=== PATIENT | male | born 1970 | race Caucasian/White ===

== ENCOUNTER 2024-06-12 14:14 | Observation (INO) | payer OTHER, SELFPAY ==
[2024-06-12] VITALS (16 sets, daily range): BP systolic 128–153; BP diastolic 66–91; PULSE 58–127; RESP 14–28; TEMP 36.1–37.1; O2SAT 92–99; BMI 36.4; BMI 35.4
--- NOTE | 2024-06-12 14:28 | EKG12_ITS ---
Test Reason : CP Blood Pressure : */* mmHG Vent. Rate : 67 BPM Atrial Rate : 67 BPM P-R Int : 150 ms QRS Dur : 88 ms QT Int : 410 ms P-R-T Axes : 4 0 13 degrees QTcB Int : 433 ms Normal sinus rhythm Minimal voltage criteria for LVH, may be normal variant ( R in aVL ) Borderline ECG Confirmed by DOUG ALEXIS, VASYL ([id number]), proposal editor ODILIA CRAWFORD ([id number]) on 06/13/2024 1:26:26 PM Referred By: DALY Confirmed By: VASYL CAMACHO MD
--- NOTE | 2024-06-12 14:43 | EX.ED.DYSGE1 ---
HPI History of Present Illness Chief Complaint: Chest Pain Narrative Narrative: Patient is a 54-year-old male with no known significant past medical history does not follow with a physician on a regular basis who presents to the emergency department with a chief complaint of lightheadedness, dizziness, confusion and not feeling well. 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 He states that he laid there for several hours and notes that things were not getting better therefore he called for an ambulance. Patient's significant other bedside notes that he had no idea where he was and they had to use GPS tracking to track his phone to be able to pick him up. She states that they went to [facility] where they did a workup and was ultimately sent home and was diagnosed with bronchitis. Patient states that he [place] truck all [place] the [place] and denies any history of blood clots. Patient states that he still feels unwell overall. He states that he feels like someone is sitting on his chest currently. Patient significant other notes that when they try to get him in here when he stood up he almost passed out. [facility] Medical History (Updated 06/12/24 @ 20:[address] Eric Rizo, ) Obesity GERD (gastroesophageal reflux disease) Home Medications ?Medication ?Instructions ?Recorded ?Last Taken ?Type chlorpheniramine-pseudoephedrine 2 10 ml PO Q6H PRN cold symptoms 06/12/24 06/11/24 History mg-30 mg/5 mL oral liquid (LoHist - D) omeprazole 20 mg tablet,delayed 20 mg PO DAILY PRN reflux 06/12/24 06/12/24 History release Allergy/AdvReac Type Severity Reaction Status Date / Time No Known Allergies Allergy Verified 06/12/24 14:14 Social History Smoking Status: Never smoker ROS ROS ED ROS Narrative Constitutional: Complains of lightheadedness and dizziness as noted above denies headache, fevers or chills Eyes: Denies change in vision double vision blurry vision Cardiovascular: Complains of chest pain as noted above denies palpitations Respiratory: Complains of shortness of breath Abdomen: Denies abdominal pain nausea vomit diarrhea : Denies urinary symptoms Neurological: Denies numbness, weakness, tingling Musculoskeletal: Denies back pain Skin: Denies rashes or lesions EXAM Physical Exam Narrative Exam Narrative: General: Patient lying in bed appeared to be not feeling well overall Head: Atraumatic, normocephalic Eyes: PERRL bilaterally, EOMI bilaterally, no conjunctival injection noted Neck: Soft, supple, trachea midline Cardiovascular: Regular rate and rhythm Respiratory: Clear to auscultation bilaterally Abdomen: Soft, nondistended, nontender to palpation Extremities: Radial pulses +2/4 in the bilateral extremities, no pedal edema on exam, +4/5 strength noted in the bilateral upper and lower extremities Neurological: Patient following commands knew that since he was at the hospital year is 2024. Told me that I had a watch on the left wrist the TV is on the wall. NIH of 0 GCS 15. Patient completed finger-nose testing bilaterally for any difficulty Skin: Warm, dry, intact no rashes or lesions noted Const Vital Signs: 06/12/24 14:15 06/12/24 15:00 06/12/24 15:29 Temperature 97 F L Temperature Source Temporal Pulse Rate 65 58 L Respiratory Rate 28 H 20 H Blood Pressure 142/80 H 153/83 H Blood Pressure Mean 100 104 Pulse Ox 99 99 Oxygen Delivery Method Room Air Room Air 06/12/24 16:00 06/12/24 16:23 06/12/24 17:00 Temperature 98 F Temperature Source Oral Pulse Rate 60 67 Respiratory Rate 24 H 15 Blood Pressure 148/86 H 142/87 H Blood Pressure Mean 106 103 Pulse Ox 97 96 Oxygen Delivery Method 06/12/24 18:00 06/12/24 19:00 06/12/24 19:15 Temperature Temperature Source Pulse Rate 67 67 69 Respiratory Rate 25 H 27 H 14 Blood Pressure 146/84 H 147/70 H 134/80 H Blood Pressure Mean 103 93 95 Pulse Ox 92 94 97 Oxygen Delivery Method 06/12/24 19:22 06/12/24 19:30 06/12/24 19:31 Temperature 98.8 F Temperature Source Oral Pulse Rate 67 127 H 102 H Respiratory Rate 23 H 24 H Blood Pressure 134/80 H 133/86 H Blood Pressure Mean 101 Pulse Ox 93 95 Oxygen Delivery Method Room Air 06/12/24 19:31 06/12/24 19:45 06/12/24 20:00 Temperature Temperature Source Pulse Rate 117 H 94 74 Respiratory Rate 23 H 21 H 26 H Blood Pressure 133/86 H 128/91 H Blood Pressure Mean 99 102 Pulse Ox 94 95 97 Oxygen Delivery Method Room Air Room Air MDM MDM MDM Narrative Medical decision making narrative: Patient is a 54-year-old male who presents to the emerged part with chief complaint chest pain, shortness of breath, dizziness and not feeling well as well as confusion. On the differential diagnosis includes but not limited to intracranial hemorrhage, CVA, large vessel occlusion, ACS, pneumonia, pneumothorax, pulmonary malaise, dissection. Once workup is obtained reviewed he will be reevaluated. Patient's CBC was reviewed and showed a white blood count of 14,000, hemoglobin 16.7, platelet count noted to be normal at 284. Patient sodium normal 137, potassium 3.7, creatinine normal at 0.97. Patient AST and ALT are 21 and 26 respectively, troponin was normal at 7 with a delta troponin obtained normal at 7 as well. Patient's EKG was reviewed and showed sinus rhythm with a rate of 61 bpm. Patient's drug screen was negative outside of presumptive positive for opiates he was given morphine here in the emergency department. Patient's CT without contrast showed no acute intracranial hemorrhage or herniation. Minimal scattered supratentorial white matter hypodensities. Patient CTA head and neck reviewed which showed unremarkable Noncon CT head without evidence of acute hemorrhage or herniation no large vessel occlusion aneurysm or AVM noted. Prominent bilateral cervical chain nodes likely reactive recommending follow-up CT in 4 weeks. Patient's CTA chest abdomen pelvis was reviewed and showed no acute findings chest abdomen pelvis no acute aortic pathology cholelithiasis noted. Patient tested negative for COVID flu RSV. Patient called out and states that his chest pain returned and feels like somebody is stepping on his chest still therefore he was given nitro and a repeat EKG was performed which showed sinus rhythm with a rate of 61 bpm no acute changes noted. At this point time will reach out to the hospitalist for admission given his confusion/altered mental status still to this point, dizziness and not feeling his normal self. He was recently at an outside facility for similar symptoms and return here today as they worsened again. Discussed case with hospitalist Dr. Packer who is recommending discussion with on-call hat binder Dr. Hernandez. She will accept patient for admission. Patient was given 325 mg aspirin and nitroglycerin. Did discuss case with on-call hat binder Dr. Hernandez who states that he will see the patient. Lab Data Labs: Laboratory Results - last 24 hr 06/12/24 06/12/24 06/12/24 14:32 16:30 17:15 WBC 14.1 H RBC 5.07 Hgb 16.7 H Hct 44.8 MCV 88.4 MCH 32.9 H MCHC 37.3 H RDW Std Deviation 42.1 RDW Coeff of Poli 13.0 Plt Count 284 MPV 9.5 Immature Gran % (Auto) 0.400 Neut % (Auto) 78.7 H Lymph % (Auto) 12.9 L Edmunds % (Auto) 7.8 Eos % (Auto) 0.1 Baso % (Auto) 0.1 Absolute Neuts (auto) 11.1 H Absolute Lymphs (auto) 1.82 Nucleated RBC % 0 Sodium 137 Potassium 3.7 Chloride 100 Carbon Dioxide 22.1 Anion Gap 14 BUN 11 Creatinine 0.97 Est GFR (MDRD) Non-Af 94 BUN/Creatinine Ratio 11.3 Glucose 151 H Calcium 9.9 Total Bilirubin 0.81 Direct Bilirubin 0.33 H AST 21 ALT 26 Alkaline Phosphatase 103 Troponin T High Sens 7 Troponin T Hi Sens 2 Hr 7 Troponin T Hi Sens 4Hr NT pro BNP II 107 Total Protein 8.1 Albumin 4.4 Globulin 3.6 Urine Opiates Screen PRESUMPTIVE POSITIVE U Buprenorphine Qual NEGATIVE Ur Oxycodone Screen NEGATIVE Urine Methadone Screen NEGATIVE Urine Fentanyl Screen NEGATIVE Ur Barbiturates Screen NEGATIVE Ur Phencyclidine Scrn NEGATIVE Ur Amphetamines Screen NEGATIVE U Benzodiazepines Scrn NEGATIVE Urine Cocaine Screen NEGATIVE U Cannabinoids Screen NEGATIVE 06/12/24 19:34 WBC RBC Hgb Hct MCV MCH MCHC RDW Std Deviation RDW Coeff of Poli Plt Count MPV Immature Gran % (Auto) Neut % (Auto) Lymph % (Auto) Edmunds % (Auto) Eos % (Auto) Baso % (Auto) Absolute Neuts (auto) Absolute Lymphs (auto) Nucleated RBC % Sodium Potassium Chloride Carbon Dioxide Anion Gap BUN Creatinine Est GFR (MDRD) Non-Af BUN/Creatinine Ratio Glucose Calcium Total Bilirubin Direct Bilirubin AST ALT Alkaline Phosphatase Troponin T High Sens Troponin T Hi Sens 2 Hr Troponin T Hi Sens 4Hr 8 NT pro BNP II Total Protein Albumin Globulin Urine Opiates Screen U Buprenorphine Qual Ur Oxycodone Screen Urine Methadone Screen Urine Fentanyl Screen Ur Barbiturates Screen Ur Phencyclidine Scrn Ur Amphetamines Screen U Benzodiazepines Scrn Urine Cocaine Screen U Cannabinoids Screen Radiography Diagnostic Testing: Clinical Impression(s) from Imaging Studies Chest/Abdomen/Pelvis CTA 06/12/24 15:10 IMPRESSION: 1. No acute findings in the chest, abdomen and pelvis. 2. No acute aortic pathology. 3. Cholelithiasis. Reading [facility] Head/Neck CTA 06/12/24 15:10 IMPRESSION: 1. Unremarkable noncontrast CT head without evidence of acute hemorrhage or herniation. 2. No large vessel occlusion, aneurysm or AVM. 3. Prominent bilateral cervical chain nodes, [id number], likely reactive. However consider follow-up CT neck in 4 weeks to ensure resolution. Reading Location: [id number] Discharge Plan Triage Chief Complaint: Chest Pain ED Provider: Eric Rizo Dx/Rx/DC Orders Clinical Impression: Chest pain, Light-headedness, Near syncope, Dizziness Prescriptions: No Action omeprazole 20 mg tablet,delayed release (DR/EC) 20 mg PO DAILY PRN (Reason: reflux) LoHist - D 2-30 mg/5 mL liquid 10 ml PO Q6H PRN (Reason: cold symptoms) Primary Care Provider: Care Physician,No Primary Referrals: [facility] Doctor,Out of [Non-Staff] - Print Language: [place] Disposition Disposition: Acute Care [facility]
[2024-06-12] MEDS: 0.9% Normal Saline (1000mL) 1,000 ML 999 ML IV (14:45)
[2024-06-12 14:50] LABS: Absolute Lymphocyte Count 1.82 X10^3/uL (0.83-4.51); Absolute Neutrophil Count 11.1 X10^3/uL (2.0-7.7); Basophil# 0.02 X10^3/uL; Basophil% 0.1 % (0-1); Eosinophil# 0.02 X10^3/uL; Eosinophils% 0.1 % (0-5); Hematocrit 44.8 % (40-54); Hemoglobin 16.7 g/dL (13.0-16.5); Lymphocyte # 1.82 X10^3/ul (0.83-4.51); Lymphocyte % 12.9 % (19-41); Mean Corp Hgb Conc 37.3 g/dL (32-36); Mean Corpuscular Hgb 32.9 pg (27.0-32.0); Mean Corpuscular Volume 88.4 fL (80-94); Mean Platelet Vol. 9.5 fl (6.2-12.0); Monocyte% 7.8 % (0-10); NRBC Flagged by Analyzer 0 % (0-5); Neutrophil # 11.08 X10^3/uL (2.7-7.7); Neutrophil % 78.7 % (47-70); Platelet Count 284 K/mm3 (150-450); RBC Distribution Width SD 42.1 fl (35.1-43.9); Red Blood Count 5.07 M/mm3 (4.6-6.2); White Blood Count 14.1 K/mm3 (4.4-11.0)
--- NOTE | 2024-06-12 15:10 | CT_ITS ---
PROCEDURE: CTA CHST, ABD, PEL W AND/OR WO 06/12/2024 REASON FOR EXAM: DIZZY, TECHNIQUE: Chest abdomen and pelvis CT with intravenous contrast. Coronal and Sagittal reconstruction series were provided. One or more dose reduction techniques were used (e.g., Automated exposure control, adjustment of the mA and/or kV according to patient size, use of iterative reconstruction technique. PATIENT PREPARATION: Per protocol ORAL CONTRAST TYPE: None. AMOUNT: mL CONTRAST: Omnipaque 350 VOLUME: 100 mL Gauge IV COMPARISON: None FINDINGS: CHEST: Lines and tubes: None Mediastinum: No suspicious adenopathy. Thyroid gland is unremarkable. Pulmonary arteries are within normal limits. No evidence of pulmonary embolism. Heart: No cardiomegaly. No coronary artery calcifications. Thoracic Aorta: No thoracic aortic aneurysm or dissection. Lungs and Airways: Central airways are patent without endobronchial lesions. No focal consolidation. No suspicious pulmonary nodules. Patchy opacities in the lung base, compatible with atelectasis. No pneumothorax. Bones: Degenerative changes of the spine. Other: ABDOMEN AND PELVIS: Liver: Normal size. No mass. Gallbladder: No ductal dilation. Large gallstone at the gallbladder neck. No significant wall thickening. Spleen: Normal size. Pancreas: Normal size without evidence of mass surrounding inflammation or ductal dilation. Adrenals: Unremarkable. Kidneys: Normal renal sizes. No hydronephrosis. 11 mm right upper pole simple cyst. Bladder: Unremarkable. Reproductive Organs: No pelvic mass. Bowel: Stomach is unremarkable. No bowel dilation or wall thickening. Colonic diverticulosis without diverticulitis. Appendix is not visualized. Vasculature: The abdominal aorta and IVC are normal. Peritoneum / Retroperitoneum: No ascites. No pneumoperitoneum. Bones: Degenerative changes of the spine. CT/CTA Chst, Abd, Pel W and/or WO IMPRESSION: 1. No acute findings in the chest, abdomen and pelvis. 2. No acute aortic pathology. 3. Cholelithiasis. Reading Location: [id number]
--- NOTE | 2024-06-12 15:10 | CT_ITS ---
PROCEDURE: STROKE CTA HEAD AND NECK W/CON 06/12/2024 REASON FOR EXAM: Dizziness, shortness of breath and diaphoresis. TECHNIQUE: CTA imaging of the head and neck from the aortic arch to the skull vertex with out contrast and with intravenous contrast. Multiplanar and multisequence images were obtained. CONTRAST: Isovue 370 VOLUME: 100 mL One or more dose reduction techniques were used (e.g., Automated exposure control, adjustment of the mA and/or kV according to patient size, use of iterative reconstruction technique). RADIATION DOSE SUMMARY: CTDlvol: 65 mGy DLP: 1800 mGycm COMPARISON: None. FINDINGS: Noncontrast CT head: No acute intracranial hemorrhage or herniation. Minimal scattered supratentorial white matter hypodensities. The bazan-white matter interfaces are otherwise maintained. The mastoid air cells and visualized paranasal sinuses are well-aerated. Unremarkable orbits. No acute calvarial fracture or scalp hematoma. CTA: Three-vessel aortic arch without stenosis or occlusion. The bilateral vertebral arteries are widely patent. The bilateral cervical carotid arteries are widely patent without focal stenosis or narrowing by NASCET criteria. The bilateral carotid siphons are widely patent. The bilateral anterior, middle and posterior cerebral arteries are widely patent without stenosis. No aneurysm or AVM. Major venous structures: Unremarkable. Other findings: Cervical spondylosis. Prominent bilateral cervical chain nodes, [id number]-left. Normal thyroid. Prior dental restorations. CT/STROKE CTA Head AND Neck W/Con IMPRESSION: 1. Unremarkable noncontrast CT head without evidence of acute hemorrhage or her niation. 2. No large vessel occlusion, aneurysm or AVM. 3. Prominent bilateral cervical chain nodes, [id number]-left, likely re active. However consider follow-up CT neck in 4 weeks to ensure resolution. Reading Location: [id number]
[2024-06-12 15:56] LABS: AST(SGOT) 21 U/L (<=37); Alanine Aminotransfer ALT/SGPT 26 U/L (<=46); Albumin, Serum 4.4 g/dL (3.5-5.0); Alkaline Phosphatase 103 U/L (40-129); Anion Gap 14 (5-15); BUN 11 mg/dL (4-19); BUN/Creat Ratio 11.3 RATIO (10-20); Bilirubin, Direct 0.33 mg/dL (0.00-0.30); Calcium,Total 9.9 mg/dL (7.6-11.0); Carbon Dioxide 22.1 mmol/L (21.0-32.0); Chloride 100 mmol/L (98-108); Creatinine, Serum 0.97 mg/dL (0.70-1.20); EST Glomerular Filtration Rate 94 (>60); Globulin 3.6 g/dL (2.2-4.2); Glucose 151 mg/dL (70-99); Potassium 3.7 mmol/L (3.3-5.1); Pro- Brain NATRIURETIC PEPTIDE 107 pg/mL (<=900); Protein, Total 8.1 g/dL (5.9-8.4); Sodium Level 137 mmol/L (133-145); Total Bilirubin 0.81 mg/dL (0.00-1.30); Troponin T High Sensitivity 7 ng/L (<=22)
[2024-06-12] MEDS: Morphine 4 MG/ML Syringe IV (16:18)
[2024-06-12] MEDS: Ondansetron 4 MG/2 ML Vial IV (16:18)
[2024-06-12 17:16] LABS: Troponin T High Sens 2 HR 7 ng/L (<=22)
[2024-06-12 18:02] LABS: Amphetamine Urine NEGATIVE (<1000 ng/mL); Barbiturate Urine NEGATIVE (< 200 ng/mL); Benzodiazepine Urine NEGATIVE (< 200 ng/mL); Buprenorphine Urine NEGATIVE (< 200 ng/mL); Cocaine Urine NEGATIVE (< 300 ng/mL); Fentanyl, Urine NEGATIVE; Methadone Urine NEGATIVE (< 300 ng/mL); Opiates Urine PRESUMPTIVE POSITIVE (< 300 ng/mL); Oxycodone, Urine NEGATIVE (< 100 ng/mL); PCP Urine NEGATIVE (< 25 ng/mL); THC Urine NEGATIVE (< 50 ng/mL)
--- NOTE | 2024-06-12 19:18 | PCA ---
NO OLD EKG
[2024-06-12] MEDS: Nitroglycerin SL (ED/IMG/CATH) 0.4 MG TABLET SL (19:22)
[2024-06-12 20:05] LABS: Troponin T High Sens 4 HR 8 ng/L (<=22)
--- NOTE | 2024-06-12 20:05 | PCM.HP.STD ---
HPI - General General Date of Admission: 06/12/24 Date of Service: 06/12/24 Chief Complaint: Chest pain, lightheadedness, dizziness, near syncopal sensation. HPI Narrative The patient is a 54 y/o M w/ PMHx: Possible PreDM history remotely, GERD, Obesity, (Denies any abuse history, possibly from morphine in the ED depending on timing of morphine dose and urine sample) UDS noted opiate presumed positive status not on narcotic chronic regimen who presents to the [facility] ED on 06/12/2024 with history of onset lightheadedness, dizziness, midsternal nonradiating chest discomfort described as a pressure-like sensation with no radiation rated 8 out of 10 in severity with associated dyspnea, diaphoresis, nausea and emesis starting the day previous while 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 He does report that recently over the last week he has had increased nasal congestion and that there has been a significant amount of pollen. He denies any specific fevers but is significant states that he has been diaphoretic and once this seems to raciel he reports potential chills. He denies any abdominal pain or diarrhea. He notes that he has no ill contacts including his significant children at the house all of which have been healthy. He does report a similar episode 1 month prior but at that time he also had other viral syndrome type complaints including sore joints and a notable cough which seem to improve however he did have the chest discomfort transiently at that time as well which seemed to raciel. He notes that his chest pressure has been constant since it started the day prior. He does report sensation of being confused when his discomfort is severe however in the ED he is completely oriented and appropriate. In the ED despite patient reported intermittent episodes of confusion his NIH stroke assessment is 0 and he reported all orientation items correctly. Workup in the ED included T97 temporal, heart rate 65, BP 142/80, respiratory rate 28, 99% on room air with most recent repeat vitals T98.8 Oral, heart rate 102, BP 133/86, respiratory rate 24, 95% on room air, CBC with WC 14.1, he 1 16.7, platelet 284 with left shift, CMP with glucose 151, T. bili 0.33 otherwise hepatic profile unremarkable, NT proBNP to normal at 107, initial troponin 7 with repeat delta 7-1/4-hour troponin pending upon requested evaluation of patient, UDS with positive presumed opiate screen, CTA chest/abdomen/pelvis with no acute findings, cholelithiasis noted, CTA head and neck with no acute findings with prominent bilateral cervical chain nodes right greater than left possibly reactive, EKG sinus rhythm with no acute evidence of ischemia with repeat also performed in similar. 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 [facility] Medical History (Updated 06/12/24 @ 20:[address] Irma Packer MD) Prediabetes Obesity GERD (gastroesophageal reflux disease) Home Medications ?Medication ?Instructions ?Recorded ?Last Taken ?Type chlorpheniramine-pseudoephedrine 2 10 ml PO Q6H PRN cold symptoms 06/12/24 06/11/24 History mg-30 mg/5 mL oral liquid (LoHist - D) omeprazole 20 mg tablet,delayed 20 mg PO DAILY PRN reflux 06/12/24 06/12/24 History release Allergy/AdvReac Type Severity Reaction Status Date / Time No Known Allergies Allergy Verified 06/12/24 14:14 Family History (Updated 06/12/24 @ 20:[address] Irma Packer MD) Mother Alzheimer's dementia Father CAD (coronary artery disease) First UT/PCI intervention in his early 60s, did end up having also bypass surgery. Myocardial infarction Hypertension Heart disease Surgical History (Updated 06/12/24 @ 20:[address] Irma Packer MD) History of tonsillectomy and adenoidectomy Social History (Updated 06/12/24 @ 20:[address] Irma Packer MD) household members: significant other Smoking Status: Never smoker alcohol intake: never substance use type: does not use ROS ROS Narrative Admission Review of Systems: CONSTITUTIONAL: No weight loss, fever, + chills, weakness or fatigue. HEENT: + Nasal congestion. Eyes: No visual loss, blurred vision, double vision or yellow sclerae. Ears, Nose, Throat: No hearing loss, sneezing, congestion, runny nose or sore throat. SKIN: No rash or itching, lesions, wounds. CARDIOVASCULAR: + Chest pain/pressure, near syncopal sensation, LH/dizziness. No edema, orthopnea, syncopal events. RESPIRATORY: + Dyspnea, cough only after recent emesis bout otherwise no marked recent productive cough. No wheezing, hemoptysis. GASTROINTESTINAL: + anorexia, nausea, vomiting. No diarrhea, abdominal pain, melena, BRBPR. GENITOURINARY: No dysuria, frequency, urgency or retention. NEUROLOGICAL: + LH/Dizziness, near syncopal sensation. No headache, dizziness, syncope, paralysis, ataxia, numbness or tingling in the extremities, focal weakness, change in bowel or bladder control, seizure. MUSCULOSKELETAL: + muscle, back pain, joint pain or stiffness. HEMATOLOGIC: No anemia, bleeding or bruising. LYMPHATICS: No enlarged nodes. No history of splenectomy. PSYCHIATRIC: No history of depression or anxiety. ENDOCRINOLOGIC: + reports of sweating, cold or heat intolerance. No polyuria or polydipsia. ALLERGIES: + Allergic rhinitis. Vital Signs Vital Signs Vital Signs: 06/12/24 14:15 06/12/24 15:00 06/12/24 15:29 Temperature 97 F L Temperature Source Temporal Pulse Rate 65 58 L Respiratory Rate 28 H 20 H Blood Pressure 142/80 H 153/83 H Blood Pressure Mean 100 104 Pulse Ox 99 99 Oxygen Delivery Method Room Air Room Air 06/12/24 16:00 06/12/24 16:23 06/12/24 17:00 Temperature 98 F Temperature Source Oral Pulse Rate 60 67 Respiratory Rate 24 H 15 Blood Pressure 148/86 H 142/87 H Blood Pressure Mean 106 103 Pulse Ox 97 96 Oxygen Delivery Method 06/12/24 18:00 06/12/24 19:00 06/12/24 19:15 Temperature Temperature Source Pulse Rate 67 67 69 Respiratory Rate 25 H 27 H 14 Blood Pressure 146/84 H 147/70 H 134/80 H Blood Pressure Mean 103 93 95 Pulse Ox 92 94 97 Oxygen Delivery Method 06/12/24 19:22 06/12/24 19:30 06/12/24 19:31 Temperature 98.8 F Temperature Source Oral Pulse Rate 67 127 H 102 H Respiratory Rate 23 H 24 H Blood Pressure 134/80 H 133/86 H Blood Pressure Mean 101 Pulse Ox 93 95 Oxygen Delivery Method Room Air 06/12/24 19:31 06/12/24 19:45 04/30/25 20:00 Temperature Temperature Source Pulse Rate 117 H 94 74 Respiratory Rate 23 H 21 H 26 H Blood Pressure 133/86 H 128/91 H Blood Pressure Mean 99 102 Pulse Ox 94 95 97 Oxygen Delivery Method Room Air Room Air Weight Weight: 283 lb 11.2 oz Body Mass Index (BMI) 36.4 Physical Exam Narrative Physical Examination: General: Awake, alert, oriented x 3 including to self, place, recent events, remains cooperative, seated upright in the ED bed in no apparent distress, chest pressure currently 8/10 but comfortable appearing. Skin: Normal color, normal turgor, no icterus, no cyanosis. HEENT: AT/NC, EOMI, PERRLA, mildly dry MM, evident nasal congestion, no carotid bruits or JVD noted; however, thickened neck makes evaluation difficult. Lungs: Mildly diminished, > bases, appropriate effort, no rales, ronchi or wheezing. Heart: Regular rate and rhythm; no gallop, rub audible. Abdomen: Soft, obese, NTTP, ND, mildly hyperactive BS, no appreciated HSM. Extremities: No cyanosis, clubbing, or edema. Neurological: Patient awake, alert, oriented as noted, cognitive function currently appears baseline intact; pupils equally reactive to light and accommodation, cranial nerves grossly normal, moving all 4 extremities, no focal deficits, strength mildly to moderately globally decreased secondary to acute presentation but currently improved as most symptoms currently abated. Psychiatric: Affect appears fatigued otherwise normal, no acute evidence of depressive or anxiety feelings. Results Lab / Micro Data 06/12/24 14:32 06/12/24 14:32 Labs: Laboratory Results - last 24 hr 06/12/24 14:32: WBC 14.1 H, RBC 5.07, Hgb 16.7 H, Hct 44.8, MCV 88.4, MCH 32.9 H, MCHC 37.3 H, RDW Std Deviation 42.1, RDW Coeff of Poli 13.0, Plt Count 284, MPV 9.5, Immature Gran % (Auto) 0.400, Neut % (Auto) 78.7 H, Lymph % (Auto) 12.9 L, [place] % (Auto) 7.8, Eos % (Auto) 0.1, Baso % (Auto) 0.1, Absolute Neuts (auto) 11.1 H, Absolute Lymphs (auto) 1.82, Nucleated RBC % 0, Sodium 137, Potassium 3.7, Chloride 100, Carbon Dioxide 22.1, Anion Gap 14, BUN 11, Creatinine 0.97, Est GFR (MDRD) Non-Af 94, BUN/Creatinine Ratio 11.3, Glucose 151 H, Calcium 9.9, Total Bilirubin 0.81, Direct Bilirubin 0.33 H, AST 21, ALT 26, Alkaline Phosphatase 103, Troponin T High Sens 7, NT pro BNP II 107, Total Protein 8.1, Albumin 4.4, Globulin 3.6 06/12/24 16:30: Troponin T Hi Sens 2 Hr 7 06/12/24 17:15: Urine Opiates Screen PRESUMPTIVE POSITIVE, U Buprenorphine Qual NEGATIVE, Ur Oxycodone Screen NEGATIVE, Urine Methadone Screen NEGATIVE, Urine Fentanyl Screen NEGATIVE, Ur Barbiturates Screen NEGATIVE, Ur Phencyclidine Scrn NEGATIVE, Ur Amphetamines Screen NEGATIVE, U Benzodiazepines Scrn NEGATIVE, Urine Cocaine Screen NEGATIVE, U Cannabinoids Screen NEGATIVE 06/12/24 19:34: Troponin T Hi Sens 4Hr 8 Micro: Microbiology 06/12/24 14:55 Mucosa - Nose SARS-CoV-2, Influenza & RSV (PCR) - Final Imaging Radiology Impression Chest/Abdomen/Pelvis CTA 06/12/24 15:10 IMPRESSION: 1. No acute findings in the chest, abdomen and pelvis. 2. No acute aortic pathology. 3. Cholelithiasis. Reading Location: [facility] Head/Neck CTA 06/12/24 15:10 IMPRESSION: 1. Unremarkable noncontrast CT head without evidence of acute hemorrhage or herniation. 2. No large vessel occlusion, aneurysm or AVM. 3. Prominent bilateral cervical chain nodes, [id number], likely reactive. However consider follow-up CT neck in 4 weeks to ensure resolution. Reading Location: [facility] Assessment & Plan Assessment/Plan (1) Chest pain: PLAN: Plan The patient is a 54 y/o M w/ PMHx: Possible PreDM history remotely, GERD, Obesity, (Denies any abuse history, possibly from morphine in the ED depending on timing of morphine dose and urine sample) UDS noted opiate presumed positive status not on narcotic chronic regimen who presents to the [facility] ED on 06/12/2024 with history of onset lightheadedness, dizziness, midsternal nonradiating chest discomfort described as a pressure-like sensation with no radiation rated 8 out of 10 in severity with associated dyspnea, diaphoresis, nausea and emesis starting the day previous while 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 #1. Fatigue, malaise, near-syncope with lightheadedness/dizziness, chest pressure, diaphoresis with nausea/emesis, possible anginal equivalent: Unclear exact etiology but concerning history, troponin series thus far in the ED has been unremarkable, EKG x 2 in ED w/ sinus rhythm without evidence of acute ischemia, UDS with positive presumed opiate screen but denies abuse and likely from timing of urine with morphine dosing in the ED, CTA chest/abdomen/pelvis with no acute findings, cholelithiasis noted, CTA head and neck with no acute findings with prominent bilateral cervical chain nodes right greater than left possibly reactive. Will admit to PCU, place on a monitored bed to assure no acute myocardial infarction with serial cardiac enzymes. PRN EKG for chest pain/changes. Will obtain admission orthostatic and AM orthostatic VS if notable. Will maintain on judicious IVFs. Will obtain ECHO. 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 #2. Incidentally noted right greater than left prominent bilateral cervical chain nodes: Likely reactive, per radiology recommend follow-up CT neck in 4 weeks which will need to be performed outpatient per PCP discretion. #3. Hyperglycemia with possible PreDM status (notes years prior may have been diagnosed): Admission glucose elevated at 151, hemoglobin A1c requested, in the interim maintain on ADA diet with Accu-Cheks with insulin sliding scale. #4. Concern for allergic rhinitis, possible sinusitis: Will start on flonase, encourage nasal irrigation, will hold on abx start given no marked facial pain but does have mild leukocytosis, procalcitonin pending, may add abx therapy if worsens, pending full respiratory viral panel. #5. Obesity: Weight loss and lifestyle changes encouraged. #6. GERD: Will continue patient on PPI. #7. DVT prophylaxis: Low risk for observation, if transitions to inpatient status will start lovenox. Charges/Coding Visit Charges Inpatient E&M: 64998 Init Hosp L2
--- NOTE | 2024-06-12 20:09 | EKG12_ITS ---
Test Reason : CP Blood Pressure : */* mmHG Vent. Rate : 61 BPM Atrial Rate : 61 BPM P-R Int : 148 ms QRS Dur : 86 ms QT Int : 434 ms P-R-T Axes : 7 0 16 degrees QTcB Int : 436 ms Normal sinus rhythm Minimal voltage criteria for LVH, may be normal variant ( R in aVL ) Borderline ECG Confirmed by DOUG ALEXIS, VASYL ([id number]), photography editor ODILIA CRAWFORD ([id number]) on 06/13/2024 1:26:34 PM Referred By: Confirmed By: VASYL CAMACHO MD
[2024-06-12] MEDS: Aspirin 325 MG Tablet PO (20:20)
--- NOTE | 2024-06-12 21:01 | ECHOCS_ITS ---
Reason For Study : Near syncope Procedure This was a 2D Doppler, Color Flow transthoracic echocardiogram. The study was technically difficult. Exam performed portable in patient room. Left Ventricle Normal LV size. The left ventricular ejection fraction is 65 %. Stage 1 diastolic dysfunction. No regional wall motion abnormalities noted. Right Ventricle Normal RV size. Normal systolic function. Atria Normal left atrium. Normal right atrium. Mitral Valve Normal mitral valve. Tricuspid Valve Normal tricuspid valve. Mild to moderate (1-2+) tricuspid valve insufficiency. Pulmonary artery systolic pressure is 40 mmHg. Aortic Valve Trisinus/trileaflet aortic valve. Pulmonic Valve Normal pulmonic valve. Great Vessels Normal aortic root. The pulmonary artery is normal size. Normal inferior vena cava. Pericardium/Pleural No pericardial effusion. Medication Diluted definity 2.0ml given slow IV push to enhance endocardial definition. MMode/2D Measurements & Calculations LVIDd: 4.8 cm IVSd: 1.1 cm Ao root diam: 3.5 cm LVIDs: 2.4 cm LVPWd: 1.1 cm FS: 50.5 % LAV(MOD-bp): 38.3 ml LVAd ap4: 28.5 cm2 LVAd ap2: 30.7 cm2 LAV(MOD-bp) Indexed: 15.4 ml/m2 LVLd ap4: 7.5 cm LVLd ap2: 8.5 cm LAV(MOD-sp2): 36.1 ml EDV(MOD-sp4): 90.8 ml EDV(MOD-sp2): 93.4 ml LAV(MOD-sp4): 40.0 ml EDV(sp4-el): 92.4 ml EDV(sp2-el): 94.0 ml LVAs ap4: 15.5 cm2 LVAs ap2: 16.9 cm2 LVLs ap4: 6.2 cm LVLs ap2: 6.8 cm ESV(MOD-sp4): 33.1 ml ESV(MOD-sp2): 37.3 ml ESV(sp4-el): 33.1 ml ESV(sp2-el): 35.8 ml EF(MOD-sp4): 63.6 % EF(MOD-sp2): 60.1 % EF(sp4-el): 64.2 % SV(MOD-sp4): 57.7 ml SV(MOD-sp2): 56.1 ml SV(sp4-el): 59.3 ml SI(MOD-sp4): 23.1 ml/m2 SI(MOD-sp2): 22.5 ml/m2 LA A4 area: 16.9 cm2 LA dimension(2D): 3.8 cm RA A4 area: 10.9 cm2 TAPSE: 2.5 cm Doppler Measurements & Calculations MV E max yash: 70.4 cm/sec Lat Peak E' Yash: 11.5 cm/sec Med Peak E' Yash: 5.2 cm/sec MV A max yash: 76.3 cm/sec E/E' lat: 6.1 E/E' med: 13.5 MV E/A: 0.92 Ao V2 max: 154.0 cm/sec LV V1 max: 121.0 cm/sec PA V2 max: 139.8 cm/sec Ao max P.5 mmHg LV V1 max P.9 mmHg TR max yash: 297.5 cm/sec TR max P.4 mmHg ECHO/Echo Complete W/ Contrast Interpretation Summary The left ventricular ejection fraction is 65 %. Stage 1 diastolic dysfunction. Normal LV size. Contrast injection was performed. Ordering Physician: Irma Packer Performed By: Virgen Swift RDCS, RVT
[2024-06-12 22:15] LABS: Procalcitonin 0.12 ng/mL (<=0.10)
[2024-06-12] MEDS: Acetaminophen 325 MG Tablet 650 MG PO (22:16)
[2024-06-12] MEDS: Pantoprazole Sodium 20 MG Tablet PO (22:22)
[2024-06-12 23:49] LABS: Bedside Glucose 145 mg/dL (74-106)
[2024-06-13] VITALS (13 sets, daily range): BP systolic 126–153; BP diastolic 66–85; PULSE 67–95; RESP 16–18; TEMP 37.1–38.6; O2SAT 94–97; BMI 35.4
[2024-06-13] MEDS: 0.9% Normal Saline (1000mL) 1,000 ML 100 ML IV (00:05)
[2024-06-13] MEDS: 0.9% Saline Lock 10 ML Syringe IV (00:05)
[2024-06-13 05:23] LABS: Absolute Lymphocyte Count 1.49 X10^3/uL (0.83-4.51); Absolute Neutrophil Count 11.4 X10^3/uL (2.0-7.7); Basophil# 0.02 X10^3/uL; Basophil% 0.1 % (0-1); Eosinophil# 0.02 X10^3/uL; Eosinophils% 0.1 % (0-5); Hematocrit 41.6 % (40-54); Lymphocyte # 1.49 X10^3/ul (0.83-4.51); Lymphocyte % 10.5 % (19-41); Mean Corp Hgb Conc 36.1 g/dL (32-36); Mean Corpuscular Hgb 32.3 pg (27.0-32.0); Mean Corpuscular Volume 89.7 fL (80-94); Mean Platelet Vol. 9.8 fl (6.2-12.0); Monocyte# 1.16 X10^3/uL; Monocyte% 8.2 % (0-10); NRBC Flagged by Analyzer 0 % (0-5); Neutrophil # 11.42 X10^3/uL (2.7-7.7); Neutrophil % 80.7 % (47-70); Platelet Count 247 K/mm3 (150-450); RBC Distribution Width CV 13.3 % (11.6-14.6); RBC Distribution Width SD 43.5 fl (35.1-43.9); Red Blood Count 4.64 M/mm3 (4.6-6.2); White Blood Count 14.2 K/mm3 (4.4-11.0)
[2024-06-13 05:43] LABS: ALB/GLOB Ratio 1.2 RATIO (0.9-2.4); AST(SGOT) 17 U/L (<=37); Alanine Aminotransfer ALT/SGPT 21 U/L (<=46); Albumin, Serum 3.9 g/dL (3.5-5.0); Alkaline Phosphatase 90 U/L (40-129); Anion Gap 10 (5-15); BUN 8 mg/dL (4-19); BUN/Creat Ratio 9.2 RATIO (10-20); Calcium,Total 9.1 mg/dL (7.6-11.0); Carbon Dioxide 23.1 mmol/L (21.0-32.0); Chloride 103 mmol/L (98-108); Creatinine, Serum 0.85 mg/dL (0.70-1.20); EST Glomerular Filtration Rate 104 (>60); Estimated Creatinine Clearance 141.36 ml/min (50-250); Globulin 3.4 g/dL (2.2-4.2); Glucose 136 mg/dL (70-99); Potassium 3.5 mmol/L (3.3-5.1); Protein, Total 7.3 g/dL (5.9-8.4); Sodium Level 136 mmol/L (133-145)
[2024-06-13] MEDS: Acetaminophen 325 MG Tablet 650 MG PO ×2 (06:30→14:11)
[2024-06-13 06:51] LABS: Bedside Glucose 129 mg/dL (74-106)
[2024-06-13 07:22] LABS: Cholesterol 130 mg/dL (<=200); High Density Lipoprotein 31 mg/dL; Low Density Lipoprotein Calc. 85 mg/dL; Triglycerides 70 mg/dL; Very Low Density Lipoprotein 14 mg/dL (5-40); cholesterol:hdl ratio screen 4.23
[2024-06-13 07:46] LABS: Hemoglobin A1c 5.5 % (<=5.6)
--- NOTE | 2024-06-13 08:29 | PCM.CONS.C ---
Assessment & Plan Assessment/Plan (1) Chest pain: PLAN: He does have some chest discomfort complaints which are nondescript. In view of his high risk profession they decided to admit him for further cardiac workup likely to include a cardiac catheterization. This has been discussed with him the risk benefits alternatives he understands and agrees to proceed. Addendum: Cardiac catheterization done demonstrated normal coronary arteries. Ejection fraction is preserved The above is likely noncoronary chest pain. Patient can be discharged for outpatient follow-up with his primary physician. 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 He went to [facility] initially he was diagnosed with bronchitis and sent home. He has still not been feeling well has a feeling of near syncope and so presented over here. 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 [facility] Medical History (Updated 06/12/24 @ 20:[address] Irma Packer MD) Prediabetes Obesity GERD (gastroesophageal reflux disease) Home Medications ?Medication ?Instructions ?Recorded ?Last Taken ?Type chlorpheniramine-pseudoephedrine 2 10 ml PO Q6H PRN cold symptoms 06/12/24 06/11/24 History mg-30 mg/5 mL oral liquid (LoHist - D) omeprazole 20 mg tablet,delayed 20 mg PO DAILY PRN reflux 06/12/24 06/12/24 History release Allergy/AdvReac Type Severity Reaction Status Date / Time No Known Allergies Allergy Verified 06/12/24 14:14 Family History Mother Alzheimer's dementia Father CAD (coronary artery disease) First CO/PCI intervention in his early 60s, did end up having also bypass surgery. Myocardial infarction Hypertension Heart disease Surgical History History of tonsillectomy and adenoidectomy Social History household members: significant other Smoking Status: Never smoker alcohol intake: never substance use type: does not use ROS Constitutional Constitutional: Denies fever(s) or weight loss Eyes Eyes: Reports systems reviewed and no addt'l complaints, except as documented ENT HEENT: Reports systems reviewed and no addt'l complaints, except as documented Cardiovascular Cardiovascular: Denies chest pain at rest, chest pain with activity, dyspnea at rest, dyspnea on exertion, edema, palpitations or paroxysmal nocturnal dyspnea Respiratory/Chest Respiratory/Chest: Denies dyspnea on exertion, productive cough, shortness of breath at rest or shortness of breath with exertion Gastrointestinal Gastrointestinal: Denies change in bowel habits, nausea, vomiting or weight changes Genitourinary Genitourinary: Denies difficulty urinating Musculoskeletal Musculoskeletal: Denies joint stiffness or muscle weakness Integumentary Integumentary: Denies lesions Neurologic Neurologic: Denies dizziness or syncope Psychiatric Psychiatric: Denies anxiety Endocrine Endocrinology: Denies excessive sweating or fatigue Hematologic/Lymphatic Hematologic/Lymphatic: Denies anemia Allergic/Immunologic Allergic/Immunologic: Denies seasonal rhinorrhea Physical Exam Const alert, oriented x3 and no apparent distress General Appearance: cooperative HEENT hearing grossly normal bilaterally Head and Scalp: atraumatic Eyes EOMs intact bilaterally Neck General: normal visual inspection Chest inspection of chest normal and palpation of chest normal Resp normal respiratory effort Auscultation: clear to auscultation bilaterally Cardio regular rate, regular rhythm, S1 normal heart sound and S2 normal heart sound Jugular Venous Distention: JVD GI normal to inspection, nondistended, normoactive bowel sounds Extremity normal capillary refill and no pedal edema Peripheral Pulses: Yes pulses 2+ throughout and femoral pulses present Skin no rashes or lesions noted Neuro oriented x3 and CN's II-XII intact bilaterally Psych Appearance: grossly normal and appropriate Risk Stratification Risk Stratification Applicable: Yes Age >/= 65: No >/= 3 CAD Risk Factors (HTN, HLD, DM, family hx of CAD, or current smoker): No Aspirin Use in the Past 7 Days: No Severe Angina (>/= episodes in 24 hours): No EKG ST Changes >/= 0.5mm: No Positive Cardiac Marker: No MARINA Risk Stratification Score: 0 MARINA % Risk: 5% Risk Objective Data Vital Signs: Vital Signs Temp Pulse Resp BP Pulse Ox O2 Del Method 98.5 F 69 19 H 135/87 H 96 Room Air 06/12/24 21:10 06/13/24 03:46 06/12/24 21:10 06/12/24 21:11 06/12/24 21:10 06/13/24 08:02 Oxygen Delivery Method Room Air Weight: 276 lb 3.827 oz Body Mass Index (BMI) 35.4 Intake & Output: Intake and Output for Last 24 Hours 06/11/24 06/12/24 06/13/24 23:59 23:59 23:59 Intake Total 1000 / 1000 Output Total 500 / 500 Balance 1000 / 1000 -500 / -500 Lab / Micro Data 06/13/24 04:55 06/13/24 04:55 Labs: Laboratory Results - last 24 hr 06/12/24 14:32: WBC 14.1 H, RBC 5.07, Hgb 16.7 H, Hct 44.8, MCV 88.4, MCH 32.9 H, MCHC 37.3 H, RDW Std Deviation 42.1, RDW Coeff of Poli 13.0, Plt Count 284, MPV 9.5, Immature Gran % (Auto) 0.400, Neut % (Auto) 78.7 H, Lymph % (Auto) 12.9 L, [place] % (Auto) 7.8, Eos % (Auto) 0.1, Baso % (Auto) 0.1, Absolute Neuts (auto) 11.1 H, Absolute Lymphs (auto) 1.82, Nucleated RBC % 0, Sodium 137, Potassium 3.7, Chloride 100, Carbon Dioxide 22.1, Anion Gap 14, BUN 11, Creatinine 0.97, Est GFR (MDRD) Non-Af 94, BUN/Creatinine Ratio 11.3, Glucose 151 H, Calcium 9.9, Total Bilirubin 0.81, Direct Bilirubin 0.33 H, AST 21, ALT 26, Alkaline Phosphatase 103, Troponin T High Sens 7, NT pro BNP II 107, Total Protein 8.1, Albumin 4.4, Globulin 3.6 06/12/24 14:46: Magnesium 2.0 06/12/24 16:30: Troponin T Hi Sens 2 Hr 7 06/12/24 17:15: Urine Opiates Screen PRESUMPTIVE POSITIVE, U Buprenorphine Qual NEGATIVE, Ur Oxycodone Screen NEGATIVE, Urine Methadone Screen NEGATIVE, Urine Fentanyl Screen NEGATIVE, Ur Barbiturates Screen NEGATIVE, Ur Phencyclidine Scrn NEGATIVE, Ur Amphetamines Screen NEGATIVE, U Benzodiazepines Scrn NEGATIVE, Urine Cocaine Screen NEGATIVE, U Cannabinoids Screen NEGATIVE 06/12/24 19:34: Troponin T Hi Sens 4Hr 8 06/12/24 19:41: Procalcitonin 0.12 H 06/12/24 22:26: POC Glucose 145 H 06/13/24 04:55: WBC 14.2 H, RBC 4.64, Hgb 15.0, Hct 41.6, MCV 89.7, MCH 32.3 H, MCHC 36.1 H, RDW Std Deviation 43.5, RDW Coeff of Poli 13.3, Plt Count 247, MPV 9.8, Immature Gran % (Auto) 0.400, Neut % (Auto) 80.7 H, Lymph % (Auto) 10.5 L, [place] % (Auto) 8.2, Eos % (Auto) 0.1, Baso % (Auto) 0.1, Absolute Neuts (auto) 11.4 H, Absolute Lymphs (auto) 1.49, Nucleated RBC % 0, Sodium 136, Potassium 3.5, Chloride 103, Carbon Dioxide 23.1, Anion Gap 10, BUN 8, Creatinine 0.85, Estim Creat Clear Calc 141.36, Est GFR (MDRD) Non-Af 104, BUN/Creatinine Ratio 9.2 L, Glucose 136 H, Hemoglobin A1c 5.5, Calcium 9.1, Total Bilirubin 1.00, AST 17, ALT 21, Alkaline Phosphatase 90, Total Protein 7.3, Albumin 3.9, Globulin 3.4, Albumin/Globulin Ratio 1.2, Triglycerides 70, Cholesterol 130, LDL Cholesterol, Calc 85, VLDL Cholesterol 14, HDL Cholesterol 31 L, Cholesterol/HDL Ratio 4.23 06/13/24 06:25: POC Glucose 129 H Micro: Microbiology 06/12/24 22:20 Mucosa - Nasopharyngeal Respiratory Panel (PCR) - Final Human [place] 06/12/24 14:55 Mucosa - Nose SARS-CoV-2, Influenza & RSV (PCR) - Final Cardiology Labs/Tests 06/12/24 14:32: WBC 14.1 H, RBC 5.07, Hgb 16.7 H, Hct 44.8, MCV 88.4, MCH 32.9 H, MCHC 37.3 H, Plt Count 284, MPV 9.5, Immature Gran % (Auto) 0.400, Neut % (Auto) 78.7 H, Lymph % (Auto) 12.9 L, [place] % (Auto) 7.8, Eos % (Auto) 0.1, Baso % (Auto) 0.1, Absolute Neuts (auto) 11.1 H, Nucleated RBC % 0, Sodium 137, Potassium 3.7, Chloride 100, Carbon Dioxide 22.1, Anion Gap 14, BUN 11, Creatinine 0.97, Est GFR (MDRD) Non-Af 94, BUN/Creatinine Ratio 11.3, Glucose 151 H, Calcium 9.9, Total Bilirubin 0.81, Direct Bilirubin 0.33 H 06/12/24 14:46: Magnesium 2.0 06/13/24 04:55: WBC 14.2 H, RBC 4.64, Hgb 15.0, Hct 41.6, MCV 89.7, MCH 32.3 H, MCHC 36.1 H, Plt Count 247, MPV 9.8, Immature Gran % (Auto) 0.400, Neut % (Auto) 80.7 H, Lymph % (Auto) 10.5 L, [place] % (Auto) 8.2, Eos % (Auto) 0.1, Baso % (Auto) 0.1, Absolute Neuts (auto) 11.4 H, Nucleated RBC % 0, Sodium 136, Potassium 3.5, Chloride 103, Carbon Dioxide 23.1, Anion Gap 10, BUN 8, Creatinine 0.85, Est GFR (MDRD) Non-Af 104, BUN/Creatinine Ratio 9.2 L, Glucose 136 H, Hemoglobin A1c 5.5, Calcium 9.1, Total Bilirubin 1.00, Triglycerides 70, Cholesterol 130, VLDL Cholesterol 14, HDL Cholesterol 31 L, Cholesterol/HDL Ratio 4.23 Rhythm: EKG: ECHO: Stress Test: Cardiac Cath: PCI: CT Surgery: Holter monitor: EPS: PPM: CXR: Chest CT Scan: Radiography Diagnostic Testing: Radiology Impression Chest/Abdomen/Pelvis CTA 06/12/24 15:10 IMPRESSION: 1. No acute findings in the chest, abdomen and pelvis. 2. No acute aortic pathology. 3. Cholelithiasis. Reading [facility] Head/Neck CTA 06/12/24 15:10 IMPRESSION: 1. Unremarkable noncontrast CT head without evidence of acute hemorrhage or herniation. 2. No large vessel occlusion, aneurysm or AVM. 3. Prominent bilateral cervical chain nodes, [id number], likely reactive. However consider follow-up CT neck in 4 weeks to ensure resolution. Reading Location: [id number]
--- NOTE | 2024-06-13 09:00 | CASEMGMT ---
SANDRO MEDINA informed cardiology consulted, pt might require surgery. SANDRO MEDINA asked DC director of gift planning to put tertiary list in for pt. SANDRO MEDINA reviewed pt chart, 6 clicks are 24 and Pt is I in room on RA. No needs anticipated at this time. Follow for safe DC plan.
--- NOTE | 2024-06-13 09:08 | CASEMGMT ---
Review for hospitals for?SELF PAY if transfer is recommended is as follows: [facility], [facility], [place], [facility], [facility], [facility], , [place], [facility], [facility], and [place]. Little Tenorio, Discharge Planning Asst.
--- NOTE | 2024-06-13 12:30 | CL.D_ITS ---
Patient Name: LIDYA PALOMO Study Date: 06/13/2024 Performing: Avinash Hernandez MD Ht: 74 inches 187.96 cm : 1970 Wt: 276.24 lbs 125.3 kg Age: 54 Gender: male BSA: 2.49 PROCEDURE(S) PERFORMED [id number])[facility] CLINICAL PROFILE AND INDICATIONS Indications: Suspected CAD Heart Failure: None Stress/Imaging Stress/Image Study Performed: No CAD Presentations: Symptom unlikely to be ischemic. CONCLUSIONS Normal coronary arteries Normal LV size, wall motion,and systolic function RECOMMENDATIONS Medical therapy DESCRIPTION OF PROCEDURE The patient arrived to the procedure lab. The risks and benefits of the procedure as well as a full description of our services here and current unavailability of surgical backup were fully explained to the patient and/or their significant other prior to the catheterization. The Timeout was completed, verifying the correct patient and procedure. The patient's procedural site was prepped and draped in the usual fashion. Local anesthetic was given subcutaneously to right radial region with Lidocaine 2%. Using a modified Seldinger technique, arterial access was obtained via the right radial artery, a 6Fr sheath was inserted. Right Coronary Artery selective angiography was then performed in multiple views using a 5 Fr. 4.0 Curtis catheter. Left Coronary Artery selective angiography was performed in multiple views using a 6 Fr. 4.0 Curtis catheter.The arterial sheath was pulled and a TR Band was applied for hemostasis CORONARY ANGIOGRAPHY DOMINANCE: Right Dominant LEFT HEART ASSESSMENT Left Ventricular Ejection Fraction: by Echo 65 % Normal LV wall motion Normal Left Ventricular systolic function LEFT MAIN: Angiographically normal LEFT ANTERIOR DESCENDING ARTERY: Angiographically normal CIRCUMFLEX ARTERY: Angiographically normal RIGHT CORONARY ARTERY: Angiographically normal COMPLICATIONS No Complications PROCEDURE MEDICATIONS Versed 1 mg IV Fentanyl 50 mcg IV Versed 1 mg IV Oxygen: 2 L/min via nasal cannula Baby Aspirin (81mg) 1 Tabs PO @ 06/13/2024 11:40:05 SUMMARY OF HEMODYNAMIC DATA Time AIR REST ECG 11:42:18 AO 131/85 (105) SA 12:12:24 Signed By Avinash Hernandez MD On 06/13/2024 12:29:57 Avinash Hernandez MD
[2024-06-13] MEDS: Pantoprazole Sodium 20 MG Tablet PO ×2 (12:49→21:48)
--- NOTE | 2024-06-13 13:13 | PN_ITS ---
Subjective Subjective Patient seen and examined. He had no active complaints. He said he was feeling better. He denied any fever or chills though he did admit to a bit of congestion. He denied any chest pain or palpitations, dizziness, nausea or vomiting. Review of systems otherwise negative. He has remained hemodynamically stable and is on room air. Objective Data Objective Data Vital Signs: Vital Signs Temp Pulse Resp BP Pulse Ox O2 Del Method 98.8 F 83 16 147/85 H 96 Room Air 06/13/24 08:38 06/13/24 13:00 06/13/24 13:00 06/13/24 13:00 06/13/24 13:00 06/13/24 13:00 Oxygen Delivery Method Room Air Weight: 276 lb 3.827 oz Body Mass Index (BMI) 35.4 Intake & Output: Intake and Output for Last 24 Hours 06/11/24 06/12/24 06/13/24 23:59 23:59 23:59 Intake Total 1000 / 1000 1000 / 1000 Output Total 700 / 700 Balance 1000 / 1000 300 / 300 Lab / Micro Data 06/13/24 04:55 06/13/24 04:55 Labs: Laboratory Results - last 24 hr 06/12/24 14:32: WBC 14.1 H, RBC 5.07, Hgb 16.7 H, Hct 44.8, MCV 88.4, MCH 32.9 H , MCHC 37.3 H, RDW Std Deviation 42.1, RDW Coeff of Poli 13.0, Plt Count 284, MPV 9.5, Immature Gran % (Auto) 0.400, Neut % (Auto) 78.7 H, Lymph % (Auto) 12.9 L, [place] % (Auto) 7.8, Eos % (Auto) 0.1, Baso % (Auto) 0.1, Absolute Neuts (auto) 11.1 H, Absolute Lymphs (auto) 1.82, Nucleated RBC % 0, Sodium 137, Potassium 3.7, Chloride 100, Carbon Dioxide 22.1, Anion Gap 14, BUN 11, Creatinine 0.97, Est GFR (MDRD) Non-Af 94, BUN/Creatinine Ratio 11.3, Glucose 151 H, Calcium 9.9, Total Bilirubin 0.81, Direct Bilirubin 0.33 H, AST 21, ALT 26, Alkaline Phosphatase 103, Troponin T High Sens 7, NT pro BNP II 107, Total Protein 8.1, Albumin 4.4, Globulin 3.6 06/12/24 14:46: Magnesium 2.0 06/12/24 16:30: Troponin T Hi Sens 2 Hr 7 06/12/24 17:15: Urine Opiates Screen PRESUMPTIVE POSITIVE, U Buprenorphine Qual NEGATIVE, Ur Oxycodone Screen NEGATIVE, Urine Methadone Screen NEGATIVE, Urine Fentanyl Screen NEGATIVE, Ur Barbiturates Screen NEGATIVE, Ur Phencyclidine Scrn NEGATIVE, Ur Amphetamines Screen NEGATIVE, U Benzodiazepines Scrn NEGATIVE, Urine Cocaine Screen NEGATIVE, U Cannabinoids Screen NEGATIVE 06/12/24 19:34: Troponin T Hi Sens 4Hr 8 06/12/24 19:41: Procalcitonin 0.12 H 06/12/24 22:26: POC Glucose 145 H 06/13/24 04:55: WBC 14.2 H, RBC 4.64, Hgb 15.0, Hct 41.6, MCV 89.7, MCH 32.3 H, MCHC 36.1 H, RDW Std Deviation 43.5, RDW Coeff of Poli 13.3, Plt Count 247, MPV 9.8, Immature Gran % (Auto) 0.400, Neut % (Auto) 80.7 H, Lymph % (Auto) 10.5 L, [place] % (Auto) 8.2, Eos % (Auto) 0.1, Baso % (Auto) 0.1, Absolute Neuts (auto) 11.4 H, Absolute Lymphs (auto) 1.49, Nucleated RBC % 0, Sodium 136, Potassium 3.5, Chloride 103, Carbon Dioxide 23.1, Anion Gap 10, BUN 8, Creatinine 0.85, Estim Creat Clear Calc 141.36, Est GFR (MDRD) Non-Af 104, BUN/Creatinine Ratio 9.2 L, Glucose 136 H, Hemoglobin A1c 5.5, Calcium 9.1, Total Bilirubin 1.00, AST 17, ALT 21, Alkaline Phosphatase 90, Total Protein 7.3, Albumin 3.9, Globulin 3.4, Albumin/Globulin Ratio 1.2, Triglycerides 70, Cholesterol 130, LDL Cholesterol, Calc 85, VLDL Cholesterol 14, HDL Cholesterol 31 L, Cholesterol/HDL Ratio 4.23 06/13/24 06:25: POC Glucose 129 H Micro: Microbiology 06/12/24 22:20 Mucosa - Nasopharyngeal Respiratory Panel (PCR) - Final Human [place] 06/12/24 14:55 Mucosa - Nose SARS-CoV-2, Influenza & RSV (PCR) - Final Radiography Diagnostic Testing: Radiology Impression Chest/Abdomen/Pelvis CTA 06/12/24 15:10 IMPRESSION: 1. No acute findings in the chest, abdomen and pelvis. 2. No acute aortic pathology. 3. Cholelithiasis. Reading Location: [facility] Head/Neck CTA 06/12/24 15:10 IMPRESSION: 1. Unremarkable noncontrast CT head without evidence of acute hemorrhage or herniation. 2. No large vessel occlusion, aneurysm or AVM. 3. Prominent bilateral cervical chain nodes, [id number]-left, likely reactive. However consider follow-up CT neck in 4 weeks to ensure resolution. Reading Location: [facility] Echocardiogram 06/12/24 21:01 Interpretation Summary The left ventricular ejection fraction is 65 %. Stage 1 diastolic dysfunction. Normal LV size. Contrast injection was performed. Ordering Physician: Irma Packer Performed By: Virgen Swift, JACKELYN, RVT Physical Exam Const alert, oriented x3, no apparent distress and well nourished Constitutional Narrative: class II obesity General Appearance: cooperative HEENT normocephalic, head/scalp atraumatic and moist oral mucous membranes Eyes PERRL and EOMs intact bilaterally Neck no lymphadenopathy and supple Lymph Lymphatic: no lymphadenopathy noted and no lymphedema noted Resp normal respiratory effort, normal air movement and clear to auscultation bilaterally Cardio regular rate, regular rhythm, S1 normal heart sound, S2 normal heart sound and no murmurs GI normal to inspection, nondistended, normoactive bowel sounds, soft to palpation, non-tender and non-distended Extremity normal capillary refill, no clubbing, cyanosis or edema and no calf tenderness General Extremity: no tenderness to palpation of joints or extremities Skin General Skin Exam: no breakdown Neuro CN's II-XII intact bilaterally, no focal motor deficits and no sensory deficits noted Motor Exam: strength 5/5 throughout and general weakness Psych thought process normal and cooperative Appearance: appropriate Assessment & Plan Assessment/Plan (1) Near syncope: (2) Dizziness: (3) Light-headedness: (4) Chest pain: PLAN: Plan #CHest pain to rule out ACS * was admitted with a complaint of chest pain, with associated lightheadedness and dizziness. * Chest pain has resolved. He did test positive for human metapneumovirus. * He had 2D echo today which showed EF of 65% with stage I diastolic dysfunction and normal LV systolic function. * cardiac cath showed angiographically normal vessels * SL nitroglycerin prn * # Dizziness and near syncope * Is symptoms are likely due to the human metapneumovirus. He did test positive for human metapneumovirus and admits to some congestion. * CT of the brain showed no acute intracranial pathology. He also had CT of the chest abdomen pelvis which showed incidental cholelithiasis but no acute findings. CTA of the head and neck showed no hemodynamically significant stenosis and showed prominent bilateral cervical chain lymph nodes greater on the right than the left and this is likely due to the human metapneumovirus. Continue gentle hydration with IV fluids. Check orthostatics. 2D echo as above. Patient feels much better. #Upper respiratory tract infection due to human metapneumovirus infection * on room air. Breathing treatment with bronchodilators. Titrate oxygen to maintain sats >90% * #Hyperglycemia: Blood sugar was 151 on admission. A1c is however 5.5. Will monitor. #Obesity: BMI is 35.5. Complicates acute care, expected recovery and prognosis. #GERD: On PPI DVT prophylaxis: Start Lovenox Disposition: * Patient is from [place] and states he does not feel fully recovered enough to be able to go home today. * He would like to stay 1 more day in the hospital. * For likely discharge tomorrow. Charges/Coding Visit Charges Inpatient E&M: 27578 Subs Hosp L2
[2024-06-13 13:16] LABS: Bedside Glucose 100 mg/dL (74-106)
[2024-06-13] MEDS: guaiFENesin 10 ML UDC (200MG/10ML) 20 ML PO (14:15)
--- NOTE | 2024-06-13 14:53 | CASEMGMT ---
Social Work Pt is from [place] and does not have insurance. SW met with pt and pt's . Information on prescription assistance program provided and questions answered regarding the [facility]. Pt denies any other needs at this time. JOSE Harris
--- NOTE | 2024-06-13 15:29 | CHAPLAIN ---
Type of Pastoral Visit _x__ Initial Visit ___ Follow-up Visit ___ On-call Visit ___ General Patient Visit ___ Spiritual Assessment ___ Family Conference ___ Bereavement ___ Rapid Response ___ Code Blue ___ Other (describe below) Pastoral Care Referral From _x__ Patient ___ Family ___ Nurse ___ Physician ___ Correspondence Transcriber ___ Actuarial Mathematician ___ Other (describe below) Sacrament/Intervention _x__ Active listening ___ Anointing ___ Church ___ Bereavement ___ Communion ___ Sonia exploration ___ _x__ Life review _x__ Prayer ___ Reconciliation ___ Sacrament of Sick _x__ Supportive presence ___ Wedding ___ Other (describe below) Pastoral Comments patient and SO are in the room; 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
[2024-06-13] MEDS: 0.9% Normal Saline (1000mL) 1,000 ML 125 ML IV (16:11)
[2024-06-13 16:49] LABS: Bedside Glucose 139 mg/dL (74-106)
[2024-06-13] MEDS: Ibuprofen 400 MG Tablet PO (16:55)
[2024-06-13 22:14] LABS: Bedside Glucose 113 mg/dL (74-106)
[2024-06-14] MEDS: 0.9% Normal Saline (1000mL) 1,000 ML 125 ML IV (00:25)
[2024-06-14 03:00] VITALS: PULSE 89
[2024-06-14 03:39] VITALS: BMI 35.0
[2024-06-14] MEDS: Acetaminophen 325 MG Tablet 650 MG PO (03:41)
[2024-06-14 03:46] VITALS: BP 122/68; PULSE 85; RESP 17; TEMP 36.7; O2SAT 94
[2024-06-14 05:18] LABS: Absolute Lymphocyte Count 1.81 X10^3/uL (0.83-4.51); Basophil# 0.02 X10^3/uL; Basophil% 0.1 % (0-1); Eosinophil# 0.04 X10^3/uL; Eosinophils% 0.3 % (0-5); Hematocrit 38.2 % (40-54); Hemoglobin 14.1 g/dL (13.0-16.5); Lymphocyte # 1.81 X10^3/ul (0.83-4.51); Mean Corp Hgb Conc 36.9 g/dL (32-36); Mean Corpuscular Volume 89.5 fL (80-94); Mean Platelet Vol. 9.8 fl (6.2-12.0); Monocyte# 1.03 X10^3/uL; Monocyte% 7.4 % (0-10); NRBC Flagged by Analyzer 0 % (0-5); Neutrophil % 78.7 % (47-70); Platelet Count 226 K/mm3 (150-450); RBC Distribution Width CV 13.2 % (11.6-14.6); RBC Distribution Width SD 42.9 fl (35.1-43.9); Red Blood Count 4.27 M/mm3 (4.6-6.2)
[2024-06-14 06:12] LABS: Anion Gap 11 (5-15); BUN 7 mg/dL (4-19); BUN/Creat Ratio 9.6 RATIO (10-20); Calcium,Total 8.5 mg/dL (7.6-11.0); Chloride 101 mmol/L (98-108); Creatinine, Serum 0.77 mg/dL (0.70-1.20); EST Glomerular Filtration Rate 107 (>60); Estimated Creatinine Clearance 155.04 ml/min (50-250); Glucose 126 mg/dL (70-99); Potassium 3.3 mmol/L (3.3-5.1); Sodium Level 135 mmol/L (133-145)
[2024-06-14 07:06] LABS: Bedside Glucose 126 mg/dL (74-106)
[2024-06-14] MEDS: Pantoprazole Sodium 20 MG Tablet PO (08:05)
[2024-06-14] MEDS: Enoxaparin 40 MG/0.4 ML Syringe SC (08:05)
[2024-06-14] MEDS: Aspirin E.C. 81 MG Tablet PO (08:05)
[2024-06-14 08:26] VITALS: BP 135/90; PULSE 87; RESP 16; TEMP 36.8; O2SAT 96
--- NOTE | 2024-06-14 10:37 | PCM.DC ---
Discharge Instructions Diet Discharge Diet: Low fat / Low cholesterol DC O2, CPAP, BIPAP needs Home O2 Discharge instructions: No Dressing / Incision Discharge Activity: Return to Normal Activity Dressing / Incision Call your doctor if you observe: Fever of 101 or Higher, Shortness of breath, Dizziness, Fainting spells, Swelling in the ankles, Chest pain and Increased palpitations (irregular heartbeat) Follow Up Care Test Results: Test results from this visit will be discussed in further detail at your follow-up appointment, if applicable. Discharge Plan Admission Admit Date/Time: 06/12/24 20:06 Attending Provider: Omero Bowers Primary Care Provider: Care Physician,No Primary Consulting Providers: Avinash Hernandez; Irma Packer; Talisha Ramon Discharge Orders/Prescriptions Prescriptions: Continued omeprazole 20 mg tablet,delayed release (DR/EC) 20 mg PO DAILY PRN (Reason: reflux) LoHist - D 2-30 mg/5 mL liquid 10 ml PO Q6H PRN (Reason: cold symptoms) Referrals / Follow Up: Care Physician,No Primary [Primary Care Provider] - [facility] Doctor,Out of [Non-Staff] - Disposition Disposition (needs filled in before D/C Order can be placed): Home, Self Care
--- NOTE | 2024-06-14 11:10 | CASEMGMT ---
Patient has order for discharge. RN CM in to discuss needs at discharge. Patient denies needs or help at discharge. RN CM encouraged patient to get established with PCP back home in [place], patient voiced understanding. Patient had no further questions or concerns.
[2024-06-14 11:46] VITALS: BP 124/84; PULSE 86; RESP 17; TEMP 36.6; O2SAT 97
[2024-06-14 12:15] LABS: Bedside Glucose 122 mg/dL (74-106)
--- NOTE | 2024-06-14 15:59 | DS.PCM_ITS ---
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 EMERGENT Consult: No MD Notified: Yes Date Notified: 06/12/24 Time Notified: 20:28 Method of Notification: ED Physician Initiated Reason For Visit: LH/DIZZINESS, NEAR SYNCOPE, CHEST PAIN Diagnosis Discharge Diagnosis (1) Near syncope: Status: Acute Code(s): R55 - Syncope and collapse (2) Dizziness: Status: Acute Code(s): R42 - Dizziness and giddiness (3) Light-headedness: Status: Acute Code(s): R42 - Dizziness and giddiness (4) Chest pain: Status: Acute Code(s): R07.9 - Chest pain, unspecified Medications at Discharge Home Medications chlorpheniramine-pseudoephedrine 2 mg-30 mg/5 mL oral liquid (LoHist - D) 10 ml PO Q6H PRN cold symptoms 06/12/24 omeprazole 20 mg tablet,delayed release 20 mg PO DAILY PRN reflux 06/12/24 Hospital Course Operations None Procedures 2-D Echocardiogram and Cardiac catheterization Summary of Care Provided Minutes Spent on Discharge: 35 Hospital Course: Per HPI: The patient is a 54 y/o M w/ PMHx: Possible PreDM history remotely, GERD, Obesity, (Denies any abuse history, possibly from morphine in the ED depending on timing of morphine dose and urine sample) UDS noted opiate presumed positive status not on narcotic chronic regimen who presents to the [facility] ED on 06/12/2024 with history of onset lightheadedness, dizziness, midsternal nonradiating chest discomfort described as a pressure-like sensation with no radiation rated 8 out of 10 in severity with associated dyspnea, diaphoresis, nausea and emesis starting the day previous while he been driving home specifically 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 He does report that recently over the last week he has had increased nasal congestion and that there has been a significant amount of pollen. He denies any specific fevers but is significant states that he has been diaphoretic and once this seems to raciel he reports potential chills. He denies any abdominal pain or diarrhea. He notes that he has no ill contacts including his significant children at the house all of which have been healthy. He does report a similar episode 1 month prior but at that time he also had other viral syndrome type complaints including sore joints and a notable cough which seem to improve however he did have the chest discomfort transiently at that time as well which seemed to raciel. He notes that his chest pressure has been constant since it started the day prior. He does report sensation of being confused when his discomfort is severe however in the ED he is completely oriented and appropriate. In the ED despite patient reported intermittent episodes of confusion his NIH stroke assessment is 0 and he reported all orientation items correctly. Workup in the ED included T97 temporal, heart rate 65, BP 142/80, respiratory rate 28, 99% on room air with most recent repeat vitals T98.8 Oral, heart rate 102, BP 133/86, respiratory rate 24, 95% on room air, CBC with WC 14.1, he 1 16.7, platelet 284 with left shift, CMP with glucose 151, T. bili 0.33 otherwise hepatic profile unremarkable, NT proBNP to normal at 107, initial troponin 7 with repeat delta 7-1/4-hour troponin pending upon requested evaluation of patient, UDS with positive presumed opiate screen, CTA chest/abdomen/pelvis with no acute findings, cholelithiasis noted, CTA head and neck with no acute findings with prominent bilateral cervical chain nodes right greater than left possibly reactive, EKG sinus rhythm with no acute evidence of ischemia with repeat also performed in similar. 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 Hospital Course: 1. Human metapneumovirus?54-year-old male presented to the hospital with near syncope as well as lightheadedness, dizziness nausea, vomiting, fatigue and malaise. Troponins were unremarkable, EKG was normal but it was felt that these could be anginal equivalents so he had an echo that was done that showed stage I diastolic dysfunction but a normal EF so he was taken to the [facility] with completely normal coronary arteries. In the meantime his viral panel came back positive for human metapneumovirus. He is feeling much better today not requiring any oxygen and I discussed with him the possibility for discharge and he expressed understanding and was amenable to going home and would like to go home today. Given that his coronary arteries were clear no further medications are recommended, and since he is feeling much better he can be discharged home to follow-up with his PCP in the next week or so. Physical Exam Narrative General: Alert, Oriented x3, Cooperative, No apparent distress HEENT: Atraumatic, PERRLA, EOMI, Normocephalic Oral: Moist Mucosa Neck: Supple, No JVD Lungs: Diminished, Normal air movement, No rhonchi, No wheeze, No rales Cardiovascular: Regular rate, Regular Rhythm, Normal S1, Normal S2, No murmurs Abdomen: Soft, Non Tender, Non-Distended, No Hepato-splenomegaly Extremities: No edema, Capillary Refill Less than 3 Seconds Skin: No rashes, No breakdown Musculoskeletal: No Tenderness to Palpation of Joints or Extremities Neurological: No focal neurological deficits, Motor Exam 5/5 strength throughout, Sensory exam intact to light touch and pain Psych/Mental Status: Normal Affect, Appropriate Weight / BMI Weight Weight: 272 lb 11.389 oz Body Mass Index (BMI) 35.0 ABG / Lab / Microbiology Data 06/14/24 04:23 06/14/24 04:23 Laboratory: Laboratory Results - last 24 hr 06/13/24 16:24: POC Glucose 139 H 06/13/24 21:47: POC Glucose 113 H 06/14/24 04:23: WBC 14.0 H, RBC 4.27 L, Hgb 14.1, Hct 38.2 L, MCV 89.5, MCH 33.0 H, MCHC 36.9 H, RDW Std Deviation 42.9, RDW Coeff of Poli 13.2, Plt Count 226, MPV 9.8, Immature Gran % (Auto) 0.500, Neut % (Auto) 78.7 H, Lymph % (Auto) 13.0 L, Kings % (Auto) 7.4, Eos % (Auto) 0.3, Baso % (Auto) 0.1, Absolute Neuts (auto) 11.0 H, Absolute Lymphs (auto) 1.81, Nucleated RBC % 0, Sodium 135, Potassium 3.3, Chloride 101, Carbon Dioxide 23.0, Anion Gap 11, BUN 7, Creatinine 0.77, Estim Creat Clear Calc 155.04, Est GFR (MDRD) Non-Af 107, BUN/Creatinine Ratio 9.6 L, Glucose 126 H, Calcium 8.5 06/14/24 06:48: POC Glucose 126 H 06/14/24 11:42: POC Glucose 122 H Microbiology: Microbiology 06/12/24 22:20 Mucosa - Nasopharyngeal Respiratory Panel (PCR) - Final Human [place] 06/12/24 14:55 Mucosa - Nose SARS-CoV-2, Influenza & RSV (PCR) - Final D/C Instructions Discharge Diet: Low fat / Low cholesterol Call your doctor if you observe: Fever of 101 or Higher, Shortness of breath, Dizziness, Fainting spells, Swelling in the ankles, Chest pain and Increased palpitations (irregular heartbeat) DC O2, CPAP, BIPAP Needs Home O2 Discharge instructions: No Meaningful Use Info Meaningful Use Meaningful Use Diagnoses (Choose all that apply): None applicable Ischemic Stroke Statin Dosing Therapy Reference: STATIN DOSE THERAPY REFERENCE: * Patients > 75 years receive moderate or high dose statin therapy. * Patients 75 years or YOUNGER should receive HIGH intensity statin dose unless contraindicated. You will be required to document reason for non-treatment if statin daily dose does not meet guidelines. HIGH DOSE STATIN THERAPY DAILY Atorvastatin > than or = to 40 mg Rosuvastatin > than or = to 20 mg Amlodipine + Atorvastatin > than or = to 2.5/40 mg Ezetimibe + Simvastatin 10/80 mg Simvastatin 80mg Discharge Plan Admission Admit Date/Time: 06/12/24 20:06 Attending Provider: Omero Bowers Primary Care Provider: Care Physician,No Primary Consulting Providers: Avinash Hernandez; Irma Packer; Talisha Ramon Discharge Orders/Prescriptions Prescriptions: Continued omeprazole 20 mg tablet,delayed release (DR/EC) 20 mg PO DAILY PRN (Reason: reflux) LoHist - D 2-30 mg/5 mL liquid 10 ml PO Q6H PRN (Reason: cold symptoms) Referrals / Follow Up: Care Physician,No Primary [Primary Care Provider] - [facility] Doctor,Out of [Non-Staff] - Disposition Disposition (needs filled in before D/C Order can be placed): Home, Self Care Charges/Coding Visit Charges Inpatient E&M: 91497 Disch Hosp >30min
== END 2024-06-14 10:40 | disposition home or self-care (01) ==
LOC: ED 20:15 → PCU 23:26
PROVIDERS: Student in an Organized Health Care Education/Training Program; Admitting Provider Family Medicine; Emergency Provider Emergency Medicine; Visit Provider Family Medicine
DX: J06.9 Acute upper respiratory infection, unspecified (principal); R07.9 Chest pain, unspecified; R55 Syncope and collapse; Z11.52 Encounter for screening for COVID-19; B97.81 Human metapneumovirus as the cause of diseases classified elsewhere; K21.9 Gastro-esophageal reflux disease without esophagitis; R53.81 Other malaise; R73.9 Hyperglycemia, unspecified; R41.0 Disorientation, unspecified; E66.9 Obesity, unspecified; Z68.36 Body mass index [BMI] 36.0-36.9, adult
CPT/HCPCS: 36415; 70496; 70498; 71275; 74174; 80048; 80053; 80061; 80076; 80307; 82962; 83036; 83735; 83880; 84145; 84484; 85025; 87631; 87633; 93005; 93306; 93454; 94668; 96361; 96372; 96374; 96375; 99152; 99153; 99221; 99285; Q9957; Q9967; A4216; C1769; C1894; C8929; G0378; J2405